=== PATIENT | male | born 1945 | race Caucasian/White ===

== ENCOUNTER 2020-09-24 09:37 | Outpatient (RCR) | payer MEDICARE, SELFPAY | END 2020-09-24 23:59 | LOC: IMMUN 09:37 | PROVIDERS: PCP Family Medicine; Visit Provider Family Medicine | DX: Z23 Encounter for immunization (principal) | CPT/HCPCS: 0011A; 0012A; 91301 ==

== ENCOUNTER 2021-05-24 14:44 | Emergency (ER) | payer MEDICARE, SELFPAY ==
[2021-05-24 14:45] VITALS: BP 159/78; PULSE 61; RESP 14; TEMP 36.6; O2SAT 97; BMI 34.4
--- NOTE | 2021-05-24 15:10 | EDS_ITS ---
HPI History of Present Illness Chief Complaint: Lower Extremity Injury Informant: patient and spouse/S.O. Narrative Narrative: 75-year-old male was going on the stairs carrying a handling with his when he thought he was on the ground but is actually the next step. States his ankle rolled in his knee bent and he fell down. He states he felt like his knee was deformed when it was bent when he straightened it out he heard a abnormal noise and pain. He notes pain lateral and superior to the patella. He states has been able to bear weight on it as long as he is in the splint and the leg is straight. [facility] Medical History Gout High cholesterol Hypertension Home Medications hydrocodone-acetaminophen 1 tab PO Q6H PRN PRN 3 Days #12 tablet 05/24/21 [Rx Last Taken Unknown] Allergy/AdvReac Type Severity Reaction Status Date / Time No Known Allergies Allergy Verified 05/24/21 14:48 Surgical History Hx of appendectomy Hx of prostatectomy Social History (Updated 05/24/21 @ 15:[address] Silvino Trevino DO) Smoking Status: Former smoker substance use type: does not use ROS ROS ED Constitutional Constitutional ED: Denies chills or weight loss Eyes Eyes: Denies change in vision or diplopia ENT ENT ED: Denies ear pain, rhinorrhea or sore throat Cardiovascular Cardiovascular: Denies chest pain, orthopnea, palpitations or racing heartbeat Respiratory/Chest Respiratory/Chest: Denies cough, dyspnea or orthopnea Gastrointestinal Gastrointestinal: Denies abdominal pain, diarrhea, nausea or vomiting Genitourinary Genitourinary ED: Denies dysuria, hematuria or urinary frequency Musculoskeletal Musculoskeletal: Reports other Details: Right knee pain ; Denies arthralgias or myalgias Integumentary Denies abscess or rash Neurologic Neurologic: Denies headache(s) or weakness Psychiatric Psychiatric: Denies anxiety, depression, suicidal ideation or suicidal thoughts Endocrine Endocrinology: Denies polydipsia, polyphagia or polyuria Allergic/Immunologic Allergic/Immunologic ED: Denies mouth swelling, tongue swelling or urticaria EXAM Physical Exam Const Vital Signs: 05/24/21 14:45 Temperature 97.9 F Temperature Source Temporal Pulse Rate 61 Respiratory Rate 14 Blood Pressure 159/78 H Blood Pressure Mean 105 Pulse Ox 97 Oxygen Delivery Method Room Air Positive well nourished and well developed General Appearance ED: well developed HEENT Reports normocephalic, head/scalp atraumatic and moist mucous membranes normocephalic and atraumatic Eyes PERRL and EOMs intact bilaterally General Eye ED: Yes other Other Details: EOMI Neck full ROM, no lymphadenopathy, supple and no JVD Chest Wall inspection of chest normal Resp normal respiratory effort and clear to auscultation bilaterally Cardio regular rate, regular rhythm and no murmurs GI normal to inspection, nondistended, normoactive bowel sounds and non-tender Palpation: soft Back/Spine no CVA tenderness and normal ROM Lumbar Spine / Lower Back: Negative for lumbar spinal tenderness Extremity Extremity Narrative: There is an apparent palpable defect superior to the patella. There is increased laxity of the patella in moving proximal and inferior. Vastus medialis appears intact. extensor mechanism is intact but he has fairly muscular legs. There is apparent swelling. Neurovascular intact distal General Extremety ED: Yes edema and weight-bearing difficulty General Extremity: edema and weight-bearing difficulty Neuro oriented x3 and CN's II-XII intact bilaterally Sensorium / Orientation: alert Motor Exam: strength 5/5 throughout Psych mental status grossly normal Mood & Affect: Negative for depressed or tearful Skin no rashes or lesions noted and no wounds MDM MDM MDM Narrative Medical decision making narrative: My interpretation of the x-rays of the right knee showed a vascular calcification but no acute fracture. Clinically I believe the patient has a rupture or partial rupture of his quadriceps tendon. We placed a knee immobilizer plus or minus crutches. I will refer him to orthopedics for further management Discharge Plan Triage Chief Complaint: Lower Extremity Injury ED Provider: Silvino Trevino Dx/Rx/DC Orders Clinical Impression: Rupture of distal quadriceps tendon Instructions: ED Patellar Dislocation/Subluxation Prescriptions: New hydrocodone-acetaminophen [hydrocodone-acetaminophen] 1 TABLET tablet 1 tab PO Q6H PRN PRN (Reason: Pain) 3 Days Qty: 12 RF: 0 Primary Care Provider: Mic Gonzalez Referrals: Mic Gonzalez MD [Primary Care Provider] - Jean-Paul Ulrich DO [STAFF PHYSICIAN] - As soon as possible Disposition Disposition: Home, Self Care
--- NOTE | 2021-05-24 15:30 | RAD_ITS ---
HISTORY: Trauma, injury EXAMINATION/TECHNIQUE: XR Knee Complete 4 Views or More: COMPARISON: None FINDINGS: BONES/JOINTS: No acute fracture or dislocation. Preservation of the joint spaces. No sclerotic or destructive changes observed. SOFT TISSUES: No soft tissue swelling or gas. Vascular calcifications. No radiopaque foreign body. RAD/Knee 4 or More Views IMPRESSION: No acute bony abnormality. at 1545 Reported and signed by: Patrick Walters MD Electronically Signed: Patrick Walters MD at 15:44 EDT Tel , Service support ,
[2021-05-24 16:15] VITALS: PULSE 70; RESP 16; O2SAT 98
== END 2021-05-24 16:16 | disposition home or self-care (01) ==
PROVIDERS: Emergency Provider Emergency Medicine; PCP Family Medicine
DX: S76.111A Strain of right quadriceps muscle, fascia and tendon, initial encounter (principal); X50.1XXA Overexertion from prolonged static or awkward postures, initial encounter; Y93.9 Activity, unspecified; Y92.9 Unspecified place or not applicable; M10.9 Gout, unspecified; Z87.891 Personal history of nicotine dependence
CPT/HCPCS: 73564; 99283

== ENCOUNTER → 2021-05-28 09:41 | Outpatient (CLI) | payer MEDICARE, SELFPAY ==
--- NOTE | 2021-05-28 09:44 | EKG12_ITS ---
Test Reason : PREOP Blood Pressure : / mmHG Vent. Rate : 071 BPM Atrial Rate : 071 BPM P-R Int : 186 ms QRS Dur : 086 ms QT Int : 376 ms P-R-T Axes : 055 -17 027 degrees QTc Int : 408 ms Normal sinus rhythm Normal ECG Confirmed by ODALIS [facility], SHASTA ([id number]), news copy editor CROW BEY ([id number]) on 05/29/2021 9:14:33 AM Referred By: Norah Fernandez Confirmed By:SHASTA JACOBO MD
== END ==
PROVIDERS: PCP Family Medicine; Referring Provider Physician Assistant; Visit Provider Physician Assistant
DX: Z01.818 Encounter for other preprocedural examination (principal); Z01.810 Encounter for preprocedural cardiovascular examination; I10 Essential (primary) hypertension
CPT/HCPCS: 87635; 93005; C9803; U0005; U0003